=== PATIENT | female | born 2000 | race Caucasian/White ===

== ENCOUNTER 2020-01-11 09:00 | Outpatient (CLI) | payer BC | END 2020-01-11 09:01 | disposition home or self-care (01) | LOC: DTY/OP 09:00 | PROVIDERS: ATTEND Family Medicine | DX: E66.01 Morbid (severe) obesity due to excess calories (principal); Z71.3 Dietary counseling and surveillance; Z68.37 Body mass index [BMI] 37.0-37.9, adult | CPT/HCPCS: 97802 ==